=== PATIENT | female | born 1995 | race Two or more races ===

== ENCOUNTER 2021-12-22 16:01 | Emergency (ER) | payer OTHER ==
[~2021-12-22] VITALS: Ht 170.2 cm; Wt 64.4 kg
[2021-12-22] MEDS ORDERED: DICLOFENAC SODI75 MG PO (16:39)
== END 2021-12-22 17:38 | disposition home or self-care (01) ==
LOC: ER 16:01
DX: M54.89 Other dorsalgia (principal)